=== PATIENT | male | born 1960 | race Caucasian/White ===

== ENCOUNTER 2017-08-12 09:30 | Emergency (ER) | payer MEDICAID ==
[~2017-08-12] VITALS: Ht 177.8 cm; Wt 90.1 kg
[2017-08-12 10:06] LABS: BASOPHILS # (AUTO) 0.1 X10'3 (0-0.2); EOSINOPHILS # (AUTO) 0.4 X10'3 (0-0.9); HEMATOCRIT 45.2 % (42.0-52.0); HEMOGLOBIN 15.6 g/dl (14.0-17.9); LYMPHOCYTES # (AUTO) 2.9 X10'3 (1.1-4.8); LYMPHOCYTES % (AUTO) 29.5 % (21-51); MEAN CORPUSCULAR HEMOGLOBIN 30.8 PG (27.0-31.0); MEAN CORPUSCULAR HGB CONC 34.5 % (33.0-36.5); MEAN CORPUSCULAR VOLUME 89.2 FL (78-98); MEAN PLATELET VOLUME 8.6 FL (7.4-10.4); MONOCYTES # (AUTO) 0.9 X10'3 (0-0.9); MONOCYTES % (AUTO) 9.2 % (2-12); NEUTROPHILS # (AUTO) 5.5 X10'3 (1.8-7.7); NEUTROPHILS % (AUTO) 56.3 % (42-75); PLATELET COUNT 223 X10'3 (140-440); RED BLOOD COUNT 5.06 X10'6 (4.70-6.10); RED CELL DISTRIBUTION WIDTH 14.8 % (11.5-14.5); WHITE BLOOD COUNT 9.8 X10'3 (4.5-11.0)
[2017-08-12 10:14] LABS: INR 0.9 INR; PROTHROMBIN TIME 9.6 SECONDS (9.0-12.0)
[2017-08-12 10:22] LABS: ALBUMIN 4.1 G/DL (3.4-5.0); ANION GAP 9 (8-16); BILIRUBIN,TOTAL 0.3 MG/DL (0.1-1.0); BLOOD UREA NITROGEN 12 MG/DL (7-18); BUN/CREATININE RATIO 11.5 (5.4-32.0); CALCIUM 9.6 MG/DL (8.5-10.1); CHLORIDE 102 MMOL/L (99-107); CREATININE 1.04 MG/DL (0.60-1.10); GLUCOSE 152 MG/DL (70-104); POTASSIUM 4.8 MMOL/L (3.5-5.1); SODIUM 138 MMOL/L (135-145); TOTAL CARBON DIOXIDE 27.3 MMOL/L (24-32); TOTAL PROTEIN 7.5 G/DL (6.4-8.2); eGFR 74 ML/MIN
[2017-08-12 10:23] LABS: ALANINE AMINOTRANSFERASE 19 U/L (12-78); ALBUMIN/GLOBULIN RATIO 1.2 (1.1-1.5); ALKALINE PHOSPHATASE 64 IU/L (46-116); ASPARTATE AMINO TRANSFERASE 12 U/L (10-37)
[2017-08-12 10:55] LABS: CLARITY,URINE CLEAR (Clear); COLOR,URINE YELLOW (Yellow); GLUCOSE, URINE NEGATIVE (Neg); KETONES,URINE NEGATIVE (Neg); LEUKOCYTE ESTERASE ,URINE NEGATIVE (Neg); NITRITES, URINE NEGATIVE (Neg); OCCULT BLOOD,URINE NEGATIVE (Neg); PROTEIN,URINE NEGATIVE (Neg); UA COLLECTION TYPE CLN CATCH MIDSTREAM; UROBILINOGEN,URINE 0.2 E.U/dL (0.2-1.0)
[2017-08-12] MEDS ORDERED: ONDA4TAB9 SL (11:35)
[2017-08-12] MEDS ORDERED: dicyclomine 10 MG capsule PO ONE (11:35)
[2017-08-12] MEDS ORDERED: PANT20TA3 PO (11:38)
[2017-08-12] MEDS ORDERED: DICY10CA88 PO (11:38)
[2017-08-12 12:04] VITALS: BP 147/92
== END 2017-08-12 12:06 | disposition home or self-care (01) ==
LOC: ER 09:31
DX: R10.13 Epigastric pain (principal); E11.9 Type 2 diabetes mellitus without complications; G89.29 Other chronic pain; J44.9 Chronic obstructive pulmonary disease, unspecified; Z86.73 Personal history of transient ischemic attack (TIA), and cerebral infarction without residual deficits; Z88.0 Allergy status to penicillin; Z79.899 Other long term (current) drug therapy
CPT/HCPCS: 36415; 80053; 81003; 85025; 85610; 99284

== ENCOUNTER 2018-02-19 20:13 | Emergency (ER) | payer MEDICAID ==
[~2018-02-19] VITALS: Ht 180.3 cm; Wt 67.2 kg
[~2018-02-19 20:13] MED LIST: DICY10CA88 PO; PANT20TA3 PO
[2018-02-19 20:55] LABS: BASOPHILS # (AUTO) 0.1 X10'3 (0-0.2); BASOPHILS % (AUTO) 1.2 % (0-1); EOSINOPHILS # (AUTO) 0.3 X10'3 (0-0.9); EOSINOPHILS % (AUTO) 3.3 % (0-6); HEMATOCRIT 42.8 % (42.0-52.0); HEMOGLOBIN 14.3 g/dl (14.0-17.9); LYMPHOCYTES # (AUTO) 2.7 X10'3 (1.1-4.8); LYMPHOCYTES % (AUTO) 29.3 % (21-51); MEAN CORPUSCULAR HEMOGLOBIN 29.3 PG (27.0-31.0); MEAN CORPUSCULAR HGB CONC 33.5 % (33.0-36.5); MEAN CORPUSCULAR VOLUME 87.4 FL (78-98); MEAN PLATELET VOLUME 8.6 FL (7.4-10.4); MONOCYTES # (AUTO) 0.7 X10'3 (0-0.9); MONOCYTES % (AUTO) 7.2 % (2-12); NEUTROPHILS # (AUTO) 5.4 X10'3 (1.8-7.7); PLATELET COUNT 217 X10'3 (140-440); RED CELL DISTRIBUTION WIDTH 15.2 % (11.5-14.5); WHITE BLOOD COUNT 9.2 X10'3 (4.5-11.0)
[2018-02-19 21:00] LABS: CLARITY,URINE CLEAR (Clear); COLOR,URINE YELLOW (Yellow); GLUCOSE, URINE 100 mg/dl (Neg); KETONES,URINE NEGATIVE (Neg); LEUKOCYTE ESTERASE ,URINE NEGATIVE (Neg); NITRITES, URINE NEGATIVE (Neg); OCCULT BLOOD,URINE NEGATIVE (Neg); PROTEIN,URINE NEGATIVE (Neg); UROBILINOGEN,URINE 0.2 E.U/dL (0.2-1.0)
[2018-02-19 21:05] LABS: INR 0.9 INR; PROTHROMBIN TIME 9.4 SECONDS (9.0-12.0)
[2018-02-19 21:10] LABS: UA COLLECTION TYPE CLN CATCH MIDSTREAM
[2018-02-19 21:11] LABS: ALANINE AMINOTRANSFERASE 25 U/L (12-78); ALBUMIN 3.6 G/DL (3.4-5.0); ALBUMIN/GLOBULIN RATIO 1.1 (1.1-1.5); ALKALINE PHOSPHATASE 66 IU/L (46-116); ANION GAP 8 (8-16); ASPARTATE AMINO TRANSFERASE 17 U/L (10-37); BILIRUBIN,TOTAL 0.1 MG/DL (0.1-1.0); BLOOD UREA NITROGEN 9 MG/DL (7-18); BUN/CREATININE RATIO 9.2 (5.4-32.0); CALCIUM 9.4 MG/DL (8.5-10.1); CHLORIDE 103 MMOL/L (99-107); CREATININE 0.98 MG/DL (0.60-1.10); GLUCOSE 181 MG/DL (70-104); LIPASE 153 U/L (73-393); POTASSIUM 4.4 MMOL/L (3.5-5.1); SODIUM 138 MMOL/L (135-145); TOTAL CARBON DIOXIDE 26.7 MMOL/L (24-32); TOTAL PROTEIN 6.8 G/DL (6.4-8.2); eGFR 79 ML/MIN
[2018-02-19] MEDS ORDERED: ketorolac trometh inj. 60 MG/2 ML VIAL IM ONE (21:40)
[2018-02-19] MEDS ORDERED: HYDROcodone/acetaminophen 5mg/325mg tablet PO ONE (21:45)
[2018-02-19] MEDS ORDERED: ketorolac trometh. 30mg/ml inj. IV ONE (22:00)
[2018-02-19] MEDS ORDERED: CYCL-1 PO (22:46)
[2018-02-19] MEDS ORDERED: HYDROcodone/acetaminophen 10/325mg tab PO ONE (23:05)
[2018-02-19 23:14] VITALS: BP 150/90
== END 2018-02-19 23:15 | disposition home or self-care (01) ==
LOC: ER 20:14
DX: R10.9 Unspecified abdominal pain (principal); J44.9 Chronic obstructive pulmonary disease, unspecified; E11.9 Type 2 diabetes mellitus without complications; G89.29 Other chronic pain; Z86.73 Personal history of transient ischemic attack (TIA), and cerebral infarction without residual deficits; Z90.49 Acquired absence of other specified parts of digestive tract; Z88.0 Allergy status to penicillin; Z79.899 Other long term (current) drug therapy
CPT/HCPCS: 36415; 74176; 80053; 81003; 83690; 85025; 85610; 96374; 99285; J1885

== ENCOUNTER 2020-12-01 11:04 | Emergency (ER) | payer MEDICAID ==
[~2020-12-01] VITALS: Ht 177.8 cm; Wt 88.6 kg
[~2020-12-01 11:04] MED LIST changes: +CYCL-1 PO; +METH-360 PO; +PANT20TA18 PO; -PANT20TA3 PO
[2020-12-01 11:23] VITALS: BP 133/76
[2020-12-01] MEDS ORDERED: TETanus/Pertussis (Acell)/Diphther VAC/PF (Tdap-Adult) 0.5ml syringe IMVAC ONE (12:10)
[2020-12-01] MEDS ORDERED: LIDOcaine 1% W/epiNEPHrine 1:200,000 10ml vial IJ ONE (12:10)
[2020-12-01] MEDS ORDERED: CEPH-585 PO (12:22)
[2020-12-01] MEDS ORDERED: CLIN150C2 PO (13:18)
== END 2020-12-01 13:55 | disposition home or self-care (01) ==
LOC: ER 11:05
DX: S61.314A Laceration without foreign body of right ring finger with damage to nail, initial encounter (principal); J44.9 Chronic obstructive pulmonary disease, unspecified; G89.29 Other chronic pain; E11.9 Type 2 diabetes mellitus without complications; Z20.3 Contact with and (suspected) exposure to rabies; Z90.89 Acquired absence of other organs; Z88.0 Allergy status to penicillin; Z79.2 Long term (current) use of antibiotics; Z79.899 Other long term (current) drug therapy; X58.XXXA Exposure to other specified factors, initial encounter; Y93.89 Activity, other specified; Y92.89 Other specified places as the place of occurrence of the external cause; Y99.8 Other external cause status
CPT/HCPCS: 29130; 73140; 90471; 90715; 99283

== ENCOUNTER 2021-04-22 22:31 | Emergency (ER) | payer MEDICAID ==
[~2021-04-22] VITALS: Ht 175.3 cm; Wt 88.6 kg
[2021-04-22 22:44] VITALS: BP 152/75
[2021-04-22 23:24] LABS: BASOPHILS % (AUTO) 0.2 % (0-1); EOSINOPHILS # (AUTO) 0.3 X10'3 (0-0.9); EOSINOPHILS % (AUTO) 2.9 % (0-6); HEMOGLOBIN 13.6 g/dl (14.0-17.9); LYMPHOCYTES # (AUTO) 2.9 X10'3 (1.1-4.8); LYMPHOCYTES % (AUTO) 25.4 % (21-51); MEAN CORPUSCULAR HEMOGLOBIN 30.3 PG (27.0-31.0); MEAN CORPUSCULAR HGB CONC 33.9 g/dL (33.0-36.5); MEAN CORPUSCULAR VOLUME 89.4 FL (78-98); MEAN PLATELET VOLUME 8.6 FL (7.4-10.4); MONOCYTES # (AUTO) 0.9 X10'3 (0-0.9); MONOCYTES % (AUTO) 7.4 % (2-12); NEUTROPHILS # (AUTO) 7.4 X10'3 (1.8-7.7); NEUTROPHILS % (AUTO) 64.1 % (42-75); PLATELET COUNT 217 X10'3 (140-440); RED BLOOD COUNT 4.48 X10'6 (4.70-6.10); RED CELL DISTRIBUTION WIDTH 14.6 % (11.5-14.5); WHITE BLOOD COUNT 11.5 X10'3 (4.5-11.0)
[2021-04-22 23:37] LABS: ALANINE AMINOTRANSFERASE 16 U/L (12-78); ALBUMIN 3.5 G/DL (3.4-5.0); ALKALINE PHOSPHATASE 69 IU/L (46-116); ANION GAP 9 (8-16); ASPARTATE AMINO TRANSFERASE 14 U/L (10-37); BILIRUBIN,TOTAL 0.3 MG/DL (0.1-1.0); BLOOD UREA NITROGEN 7 MG/DL (7-18); CALCIUM 8.6 MG/DL (8.5-10.1); CHLORIDE 104 MMOL/L (99-107); GLUCOSE 187 MG/DL (70-104); POTASSIUM 3.7 MMOL/L (3.5-5.1); SODIUM 141 MMOL/L (135-145); TOTAL CARBON DIOXIDE 28.3 MMOL/L (24-32); TOTAL PROTEIN 6.9 G/DL (6.4-8.2); eGFR 76 ML/MIN
== END 2021-04-23 01:27 | disposition left against medical advice (07) ==
LOC: ER 22:32
DX: Z13.79 Encounter for other screening for genetic and chromosomal anomalies (principal); R42 Dizziness and giddiness; R05.9 Cough, unspecified; J44.9 Chronic obstructive pulmonary disease, unspecified; F17.200 Nicotine dependence, unspecified, uncomplicated; E11.9 Type 2 diabetes mellitus without complications; G89.29 Other chronic pain; Z86.73 Personal history of transient ischemic attack (TIA), and cerebral infarction without residual deficits; Z90.89 Acquired absence of other organs; Z88.0 Allergy status to penicillin; Z79.899 Other long term (current) drug therapy
CPT/HCPCS: 36415; 71045; 80053; 83880; 84484; 85025; 93005; 99285

== ENCOUNTER 2025-01-11 06:17 | Emergency (ER) | payer MEDICAID ==
[~2025-01-11] VITALS: Ht 177.8 cm; Wt 81.9 kg
[2025-01-11 06:21] VITALS: TEMP 97.9
[2025-01-11] MEDS ORDERED: CLIN150C2 PO (07:03)
--- NOTE | 2025-01-11 07:03 | Physician Documentation ---
History of Present Illness ~ Chief Complaint: Numbness Stated Complaint: POSSIBLE STROKE Time Seen by MD: 06:30 Primary Medical Doctor: [email or web address] Source: patient, family Mode of Arrival: POV Exam Limitations: no limitations HPI Chief Complaint: Right facial swelling and numbness Caveat: None Independent Historians: History of Present Illness: Patient is a 64-year-old man who comes in complaining of waking up with swelling of the right face. He also has associated numbness. Patient states that he woke at 4:00 a.m. and that his right face swollen. Patient states it was much worse when he woke up and that the swelling has improved significantly. Patient is denying any pain. Patient denies any fever. Patient denies any other associated symptoms. Patient states that he has poor dentition but does not have any dental pain. Review of systems: All systems were reviewed and are negative except for what is indicated in the history of present illness. Past Medical History: Prostate cancer, HTN, type 2 diabetes Past Surgical History: Noncontributory Social History: , no tobacco use, no alcohol use, no drug use Medications: Reviewed as documented Nursing Notes Allergies: Reviewed as documented in Nursing Notes Medication Reconciliation Allergies: Coded Allergies: Penicillins (Verified Allergy, Unknown, 01/11/25) Scheduled Clindamycin (Cleocin ), 2 CAP PO Q8H Dicyclomine Hcl* (Bentyl*), 1 CAP PO BID Methocarbamol (Robaxin-750), 1 TAB PO Q12H Pantoprazole Sodium (Protonix), 1 TAB PO DAILY Scheduled PRN Cyclobenzaprine* (Cyclobenzaprine*), 1 TABLET PO Q8H PRN for muscle spasms Past Medical History Past Medical History: CVA/TIA/Stroke, COPD, Diabetes, Chronic Pain Past Surgical History: appendectomy Alcohol Use: None Drug Use: none Lives with: Family Lives In: Home Review of Systems All Other Systems at this time: Reviewed and Negative ROS Patient denies any other acute symptoms other than above. All other systems are negative Physical Exam Vital Signs: RN Vital Signs have been reviewed: Yes, Temperature: 97.9, Source: Oral, Heart Rate: 86, Respiratory Rate: 18, BP: 154/82, Pulse Oximetry: 96, Weight: 81.900 Pulse Oximetry Reflects: adequate oxygenation Physical Exam General Appearance: No distress HEENT: Normal OP, moist oral mucosa, PERRL, EOMI, mild subtle swelling to the right lower cheek just lateral to the lip. On examination there is some small area of induration but no fluctuance. No facial erythema. Parotid gland and submandibular gland are not swollen and are nontender. Neck: supple, normal ROM, trachea midline Pulmonary: No respiratory distress, CTA, BS equal Cardiac: RRR, no murmur, rub or gallop, Skin: intact, dry, warm, no rashes Neuro: AAOx3, speech is clear, no focal motor weakness, no facial droop, cranial nerves 2-12 grossly intact, decreased sensation to light touch. Psych: normal affect, good eye contact, no apparent hallucination, normal speech Progress Results/Orders Results/Orders Vital Signs 01/11/25 06:21 Temp 97.9 Pulse 86 Resp 18 B/P (MAP) 154/82 Pulse Ox 96 Medical Decision Making Findings Differential diagnosis includes but is not limited to: Early infection, facial abscess, dental infection, salivary stone Emergency department course/medical decision-making: Patient presents with a right facial swelling that has improved significantly since he woke up at 4:00 a.m.. Patient is going to be started on some antibiotics, clindamycin. There was no evidence of salivary gland swelling. Submandibular area is nontender and without swelling. There is no submental swelling to suggest Dalton's. In addition the parotid gland is not swollen and is nontender. Falling isn't thought to be secondary to a salivary stone as the swelling is quite anterior and close to the lip. Patient is instructed to follow up with his doctor Monday if the swelling has not resolved. Patient is stable for discharge. Departure Time of Disposition: 06:59 Disposition: HOME / SELF CARE / HOMELESS Impression: Primary Impression: Right facial swelling Discharge Instructions: Medical Screening Exam Additional Instructions: THE CAUSE OF THE SWELLING IS THOUGHT TO BE AN INFECTION. RETURN TO THE ER IF YOUR SYMPTOMS WORSEN OR IF YOU DEVELOP A FEVER. FOLLOW UP WITH YOUR DOCTOR AND DENTIST. CALL YOUR DOCTOR MONDAY FOR FOLLOW UP IF SWELLING HAS NOT RESOLVED BY MONDAY. Prescriptions Clindamycin (Cleocin ) 150 Mg Capsule 2 CAP PO Q8H, #60 CAP Prov: YANELY MCDONOUGH MD 01/11/25 Education Educated: Patient Educated regarding: diagnosis, treatment, need for follow up Signature Scribe Signature: No scribe Attestation: No [email or web address] YANELY MCDONOUGH MD Jan 11, 2025 07:03
[2025-01-11 07:23] VITALS: BP 140/78; PULSE 97; RESP 18; O2SAT 99
== END 2025-01-11 07:23 | disposition home or self-care (01) ==
LOC: ER 06:18
DX: R22.0 Localized swelling, mass and lump, head (principal); R20.0 Anesthesia of skin; J44.9 Chronic obstructive pulmonary disease, unspecified; I10 Essential (primary) hypertension; E11.9 Type 2 diabetes mellitus without complications; Z88.0 Allergy status to penicillin; Z86.73 Personal history of transient ischemic attack (TIA), and cerebral infarction without residual deficits; Z90.49 Acquired absence of other specified parts of digestive tract
CPT/HCPCS: 99283